=== PATIENT | male | born 1980 | race Caucasian/White ===

== ENCOUNTER 2023-06-28 08:46 | Emergency (ER) | payer OTHER, SELFPAY ==
[2023-06-28 09:01] VITALS: BP 143/94
[2023-06-28] MEDS: NSS 1000 IV (11:49)
[2023-06-28 11:54] LABS: % Basophils 0.8 % (0-2); % Eosinophils 3.4 % (0-6); % Immature Granulocytes 0.5 % (0-0.5); % Lymphocytes 27.9 % (20.5-51.1); % Neutrophils 60.4 % (42.2-75.2); Absolute Basophils 0.1 10^3/uL (0-0.2); Absolute Eosinophils 0.3 10^3/uL (0-0.7); Absolute Lymphocytes 2.1 10^3/uL (1.2-3.4); Absolute Monocytes 0.5 10^3/uL (0.1-0.6); Absolute Neutrophils 4.6 10^3/uL (1.4-6.5); Hematocrit 41.3 % (39.0-52.0); Hemoglobin 14.8 g/dL (13.0-18.0); Mean Corp Hgb Conc. 35.8 g/dL (33.0-37.0); Mean Corpuscular Hgb 29.2 pg (27.0-31.0); Mean Corpuscular Volume 81.5 fL (80.0-94.0); Mean Platelet Volume 10.4 fL (7.4-10.4); Nucleated Red Blood Cells % 0 % (-); Platelet Count 288 10^3/uL (130-400); Red Blood Cell Count 5.07 10^6/uL (4.70-6.10); Red Cell Dist. Width 12.5 % (11.5-14.5); White Blood Cell Count 7.6 10^3/uL (4.8-10.8)
--- NOTE | 2023-06-28 11:58 | ED.GENMED ---
History of Present Illness
General
Chief Complaint: Heart Rate Problem
Source: patient
Exam Limitations: none
Time Seen by Provider: 06/28/23 10:37
Nursing documentation reviewed up to this point in time: agreed with
Travel History
Have you had any contact with someone who has COVID-19?: No
Do you have any symptoms of coronavirus? Fever > 100 degrees, chills, cough, shortness of breath, sore throat, loss of taste or smell, muscle aches, or headache?: No
History of Present Illness
History of Present Illness:
Patient with history of 'rapid heart rate' for long period of time, and has been evaluated by beauty advisor, including wearing Holter monitor, presents to ED secondary to worsening recurrent palpitations over the past 2 days, especially this morning,
when symptoms lasted over 1 hour, associated with mild lightheadedness. Denies nausea or vomiting. Denies headache. Denies blurred vision. Denies chest pain. Denies loss of consciousness. Of note, patient admits to having had increased amount
of alcohol consumption yesterday during an outing. Patient has not had anything to eat or drink after waking up this morning. In addition, when he was wearing Holter monitor in the past, unfortunately, patient did not experience any palpitations
during that time. There is however, family history of early heart disease, with his father having had a heart attack when he was 33 years old. Denies smoking. Denies recent travel. Denies leg pain or swelling. Denies recent travel or surgery.
Denies recent change in medications or diet. Denies recent illness.
Past History
Past History
ED Past Medical History: HTN and Hypercholesterolemia
Review of Systems
Review of Systems
Allergies reviewed?: Yes
All Other Systems: ROS reviewed and negative except as documented in HPI and ROS
Constitutional: Reports no symptoms
EENT: Reports no symptoms
Respiratory: Reports no symptoms
Cardiac: Reports chest pain
ABD/GI: Reports no symptoms
: Reports no symptoms
Musculoskeletal: Reports no symptoms
Skin: Reports no symptoms
Neurological: Reports dizzy
Phy Exam
Physical Exam
Physical Exam:
Physical Exam
General: no apparent distress, not acutely ill. afebrile
Head: nc/at
Neck: supple. no meningeal signs.
Heart: s1/s2 regular rate and rhythm, no murmur. equal radial pulses.
Lungs: no acute respiratory distress. clear bilaterally
Abdomen: normal bowel sounds. not tender.
Neuro: alert and oriented. no focal neurological deficits
Skin: no rash
Psychiatric: well kept. interactive and cooperative
Extremities: no edema. no calf tenderness.
Course
Orders/Labs/Results
Orders:
Orders
06/28/23 09:00
Electrocardiogram (*1) Urgent
Reason for Study: Tachycardia
EKG- Treatment ONCE
06/28/23 11:19
Orthostatic VS- Treatment ONCE
06/28/23 11:20
0.9% Sodium Chloride 1000 ml [Nss] 1,000 ml IV BOLUS
06/28/23 11:38
Complete Blood Count/With Diff Urgent
Comprehensive Metabolic Panel Urgent
Magnesium Urgent
TSH Urgent
Troponin I Urgent
Abnormal Lab Results
06/28/23
11:38
Glucose 105 H mg/dl
(70-99)
06/28/23 11:38
06/28/23 11:38
Vital Signs
Initial and Last Documented VS:
Initial Vital Signs
Temp Pulse Resp BP Pulse Ox
98.6 F 90 16 143/94 95
06/28/23 09:01 06/28/23 09:01 06/28/23 09:01 06/28/23 09:01 06/28/23 09:01
Last Documented Vital Signs
Temp Pulse Resp BP Pulse Ox
98.6 F 90 16 143/94 95
06/28/23 09:01 06/28/23 09:01 06/28/23 09:01 06/28/23 09:01 06/28/23 09:01
MDM/Problems Addressed
MDM/Problems Addressed:
Patient without any further episodes of palpitations during observation ED, along with stable vital signs. Patient's presenting symptoms likely SVT versus PVC versus PACs versus a flutter/A-fib. Patient will be discharged home in stable condition,
with recommendation to continue hydration along with close follow-up with his PMD/cardiology for reevaluation, including potential Holter monitoring.
*EKG
Interpreted by ED Provider?: Yes
EKG Intrepretation Date: 06/28/23
Interpretation: normal
Heart Rate: 84
Rate: normal
Rhythm: sinus
[place]: normal axis
Interval: normal interval
*Critical Care Note
Total Time (30-74mins, 75-104mins- exclusive of procedures): Not Applicable
ED Attending Note
-
Portions of this chart may have been created with voice recognition software.� Occasional wrong word or��sound alike� substitutions may have occurred due to the inherent limitations of voice recognition software.
Discharge Plan
Departure
Patient Disposition: Home (Routine Discharge)
Date of Disposition: 06/28/23
Time of Disposition: 12:45
Patient with high blood pressure during this ER visit?: Yes
Condition: Good
Covid-19: Not Applicable
Discharge Problem:
Heart palpitations
Instructions: Palpitations (DC)
Prescriptions:
No Action
doxycycline hyclate 100 MG tablet
100 mg PO BID Qty: 20 0RF
Referrals:
Donell Morton DO [Family Provider] -
Activity Restrictions/Additional Instructions:
As discussed, please follow-up with your primary care physician and/or beauty advisor for further evaluation and treatment
Interventions
Interventions:
*Risk Screen - Suicide Last Done: 06/28/23 11:09
*General Assessment Last Done: 06/28/23 11:09
*Neglect/Abuse Screening Last Done: 06/28/23 11:09
ED- Fall Risk Assessment Last Done: 06/28/23 11:09
*ED COVID-19 Vaccine History Last Done: 06/28/23 09:01
*Nursing Disposition Last Done: 06/28/23 12:48
ED- Cardiac Assessment Last Done: 06/28/23 11:09
ED- Pulmonary Assessment Last Done: 06/28/23 11:09
Discharge Date and Time
Discharge Date/Time: 06/28/23 13:19
[2023-06-28 12:07] LABS: ALT (SGPT) 38 U/L (0-50); AST (SGOT) 36 U/L (17-59); Albumin 4.3 g/dl (3.5-5.0); Alkaline Phosphatase 52 U/L (38-126); Blood Urea Nitrogen 20 mg/dl (9-20); Calcium 9.9 mg/dl (8.4-10.2); Carbon Dioxide 27 mmol/L (22-30); Chloride 102 mmol/L (98-107); Glucose 105 mg/dl (70-99); Magnesium 2.1 mg/dl (1.6-2.3); Potassium 4.7 mmol/L (3.5-5.1); Sodium 138 mmol/L (135-145); Total Bilirubin 0.7 mg/dl (0.2-1.3); Total Protein 7.1 g/dl (6.3-8.2); eGFR > 60.00
[2023-06-28 12:16] LABS: Troponin I < 0.012 ng/ml
[2023-06-28 12:37] LABS: TSH 1.36 uIU/ml (0.47-4.68)
[2023-06-28 12:46] VITALS: BP 118/78; BP 119/68; BP 129/72; PULSE 59; PULSE 62; PULSE 63
== END 2023-06-28 13:19 | disposition home or self-care (01) ==
LOC: EMR 08:46
PROVIDERS: EMERGENCY PHYSICIAN Emergency Medicine; FAMILY PHYSICIAN Family Medicine
DX: R00.2 Palpitations (principal); I10 Essential (primary) hypertension; Z82.49 Family history of ischemic heart disease and other diseases of the circulatory system
CPT/HCPCS: 99284; 96360; 80053; 83735; 84443; 84484; 85025; 93005

== ENCOUNTER 2024-11-02 13:54 | Inpatient (IN) | payer OTHER, SELFPAY ==
[2024-11-02 10:40] VITALS: BP 138/90
--- NOTE | 2024-11-02 11:00 | ED.GENMED ---
History of Present Illness
General
Chief Complaint: Abdominal Pain
Source: patient
Time Seen by Provider: 11/02/24 10:46
History of Present Illness
History of Present Illness:
44-year-old male presents to the emergency room complaining of upper abdominal pain. Patient states the pain began at around 5 AM. It woke him from sleep. Pain is located in the epigastric area and radiates to the back. He has nausea but has not
vomited. Nothing seems to make the pain better or worse. He did not take any medication to help with the pain. Patient has had similar episodes of pain which were short-lived and not as severe. His doctor thought perhaps he was having episodes
of pancreatitis but his labs were unremarkable. Patient denies any previous abdominal surgery. He endorses alcohol use but on a once a week basis. He did drink more than he typically does this weekend while at a constitution party. Patient denies any fever,
chills, diarrhea. Patient also endorses a history of hypertriglyceridemia.
Past History
Past History
ED Past Medical History: HTN and Hypercholesterolemia
Phy Exam
Physical Exam
Physical Exam:
General: Awake, Alert, Oriented X3. Appears mildly uncomfortable
Vitals: unremarkable
Head: Atraumatic
Eyes: Pupils equal, EOMI
Throat: Airway intact, no exudates
Neck: Trachea midline
Lungs: Clear and equal b/l
Heart: Regular rate, no murmurs
Abd: Soft, tender to palpation in the epigastrium,, No pulsatile mass
Neuro: Nonfocal
Skin: Warm, dry, no rash
Extremities: pulses equal b/l, no edema
Course
Orders/Labs/Results
Orders:
Orders
11/02/24 Breakfast
NPO
Allow oral meds: Yes
Allow clear liquids: No
11/02/24 10:58
0.9% Sodium Chloride 1000 ml [Nss] 1,000 ml IV BOLUS
Ketorolac [Toradol] 15 mg IV NOW STA
Ondansetron Injectable [Zofran] 4 mg IV NOW STA
11/02/24 10:59
US Abdomen Complete/Upper Urgent
Comment:
Reason For Exam: epigastric pain
11/02/24 11:02
Complete Blood Count/With Diff Urgent
Comprehensive Metabolic Panel Urgent
Lipase Urgent
Triglycerides Urgent
Comment: ADD ON
11/02/24 12:24
CT Abd/pelvis W Iv Cont Urgent
Comment:
Reason For Exam: abdominal pain, elevated lipase
11/02/24 13:15
Urinalysis Reflex To Culture Urgent
Date Specimen was Collected: 11/02/24
Time Specimen was Collected: 12:04
11/02/24 13:22
Admit/Transfer Patient As Directed
Co-Sign Provider:
Level of Care: Inpatient admission
Assign to:: Medical/Surgical
Physician / Group: tash
Diagnosis: acute pancreatitis
Reason for Hospitalization: acute pancreatitis
Expected length of stay greater than two midnights?: Yes
ELOS- Estimated Length of Stay in days: 3
I certify the patient meets the requirements for IP care: Yes
PRN Pain Medication Management As Directed
May give lesser potent ordered pain med per pt: Yes
preference::
Protocol:: Medication orders for pain may be administered in a
manner that supports deferring to patient preference
when the pt is:
- Requesting an ordered lesser potent pain medication.
Least to most potent pain medications are defined
as: acetaminophen < NSAID < tramadol < opioids
(morphine, oxycodone, hydromorphone).
- Requesting a lesser dose of the same medication IF
ORDERED.
- Requesting a less intrusive route of administration
if both routes are prescribed by the provider (PO <
IV).
11/02/24 13:23
Code Status As Directed
Resuscitation Status: Full Code
11/02/24 13:45
HYDROmorphone [Dilaudid] 1 mg IV Q4HPRN PRN
11/02/24 14:17
0.9% Sodium Chloride 1000 ml [Nss] 1,000 ml IV 250 mls/hr
11/02/24 14:17
Activity As Directed
Activity Level: As Tolerated
Vital Signs As Directed
Frequency: Per unit guidelines
DX Deep Vein Thrombosis Video Routine
11/02/24 15:00
0.9% Sodium Chloride 250 ml [Nss] 250 ml IV 5/D
11/02/24 15:05
Pantoprazole [Protonix] 40 mg PO DAILYPRN PRN
11/02/24 18:00
Enoxaparin Sodium [Lovenox] 40 mg SC QPM
11/02/24 22:00
Fenofibrate 145 [Tricor] 145 mg PO HS
Losartan [Cozaar] 50 mg PO HS
Rosuvastatin Calcium [Crestor] 40 mg PO HS
11/03/24 06:49
Lipase IN AM
11/04/24 06:00
Lipase IN AM
11/05/24 06:00
Lipase IN AM
11/06/24 06:00
Lipase IN AM
Abnormal Lab Results
11/02/24
11:02
MPV 10.6 H fL
(7.4-10.4)
Absolute Neuts (auto) 7.1 H 10^3/uL
(1.4-6.5)
Neutrophils % 76.2 H %
(42.2-75.2)
Lymphocytes % 16.7 L %
(20.5-51.1)
Calcium 10.4 H mg/dl
(8.4-10.2)
Triglycerides 195 H mg/dl
(10-149)
Lipase 1688 H* U/L
(23-300)
11/02/24 11:02
11/02/24 11:02
Vital Signs
Initial and Last Documented VS:
Initial Vital Signs
Temp Pulse Resp BP Pulse Ox
98.3 F 79 18 138/90 97
11/02/24 10:40 11/02/24 10:40 11/02/24 10:40 11/02/24 10:40 11/02/24 10:40
Last Documented Vital Signs
Temp Pulse Resp BP Pulse Ox
98 F 64 16 128/81 97
11/03/24 15:08 11/03/24 15:08 11/03/24 15:08 11/03/24 15:08 11/03/24 15:08
MDM/Problems Addressed
Differential Diagnosis Includes:
Pancreatitis, choledocholithiasis, cholecystitis, diverticulitis
MDM/Problems Addressed:
Patient's presentation seems most consistent with pancreatitis. Lipase is elevated. CT shows mild peripancreatic inflammatory changes.
*Radiology
Radiology exam reviewed: radiology read reviewed
*Pulse Oximetry
Patient hypoxic: no
Comment: 97
*EKG
Interpreted by ED Provider?: Yes
Heart Rate: 62
Rate: normal
Rhythm: sinus
[place]: normal axis
Interval: normal interval
QRS Pattern: normal QRS
Ischemia: no ischemia
*Customer Service Administrator Interpretation
Rate: normal
Interpretation: normal
Heart Rate: 62
Rhythm: sinus
*Critical Care Note
Total Time (30-74mins, 75-104mins- exclusive of procedures): Not Applicable
ED Attending Note
-
Portions of this chart may have been created with voice recognition software.� Occasional wrong word or��sound alike� substitutions may have occurred due to the inherent limitations of voice recognition software.
Discharge Plan
Departure
Patient Disposition: Admit
Date of Disposition: 11/02/24
Time of Disposition: 12:27
Admit to: Med/Surg
Presentation/result/management discussed w/ accepting MD/DO: Hospitalist
Patient with high blood pressure during this ER visit?: No
Condition: Good
Discharge Problem:
Abdominal pain, Acute pancreatitis
Interventions
Interventions:
*Risk Screen - Suicide Last Done: 11/02/24 10:40
*General Assessment Last Done: 11/02/24 10:40
*Neglect/Abuse Screening Last Done: 11/02/24 10:40
*ED- Fall Risk Assessment Last Done: 11/02/24 11:15
*ED COVID-19 Vaccine History Last Done: 11/02/24 11:15
*Nursing Disposition Last Done: 11/02/24 14:05
YN-Lwtgiz-Tpubfwmxyw Assessment Last Done: 11/02/24 11:06
Discharge Date and Time
Discharge Date/Time: 11/02/24 14:17
[2024-11-02] MEDS: TORADOL 15 MG IV (11:07)
[2024-11-02] MEDS: ZOFRAN 4 MG IV ×2 (11:07→20:58)
[2024-11-02] MEDS: NSS 1000 IV ×4 (11:07→23:36)
[2024-11-02 11:12] VITALS: BP 133/84
[2024-11-02 11:14] VITALS: BMI 32.0
[2024-11-02 11:15] LABS: % Basophils 0.3 % (0-2); % Eosinophils 1.6 % (0-6); % Immature Granulocytes 0.4 % (0-0.5); % Lymphocytes 16.7 % (20.5-51.1); % Monocytes 4.8 % (1.7-9.3); % Neutrophils 76.2 % (42.2-75.2); Absolute Eosinophils 0.2 10^3/uL (0-0.7); Absolute Lymphocytes 1.6 10^3/uL (1.2-3.4); Absolute Monocytes 0.5 10^3/uL (0.1-0.6); Absolute Neutrophils 7.1 10^3/uL (1.4-6.5); Hematocrit 45.1 % (39.0-52.0); Hemoglobin 15.3 g/dL (13.0-18.0); Mean Corp Hgb Conc. 33.9 g/dL (33.0-37.0); Mean Corpuscular Hgb 27.9 pg (27.0-31.0); Mean Corpuscular Volume 82.1 fL (80.0-94.0); Mean Platelet Volume 10.6 fL (7.4-10.4); Nucleated Red Blood Cells % 0 % (-); Platelet Count 283 10^3/uL (130-400); Red Blood Cell Count 5.49 10^6/uL (4.70-6.10); Red Cell Dist. Width 12.4 % (11.5-14.5); White Blood Cell Count 9.3 10^3/uL (4.8-10.8)
[2024-11-02 11:45] LABS: ALT (SGPT) 36 U/L (0-50); AST (SGOT) 32 U/L (17-59); Albumin 4.9 g/dl (3.5-5.0); Alkaline Phosphatase 45 U/L (38-126); Blood Urea Nitrogen 18 mg/dl (9-20); Calcium 10.4 mg/dl (8.4-10.2); Carbon Dioxide 28 mmol/L (22-30); Chloride 107 mmol/L (98-107); Glucose 97 mg/dl (70-99); Lipase 1688 U/L (23-300); Potassium 4.6 mmol/L (3.5-5.1); Sodium 142 mmol/L (135-145); Total Bilirubin 0.8 mg/dl (0.2-1.3); eGFR > 60.00
[2024-11-02 12:27] VITALS: BP 125/85
[2024-11-02 12:38] LABS: Estimated Creatinine Clearance 95 ml/min
[2024-11-02 13:00] VITALS: BP 118/75
--- NOTE | 2024-11-02 13:09 | HPS.HSE ---
Family Physician
-
Family Physician: RAMIN NGO MD
Chief Complaint
-
Epigastric pain
History of Present Illness
44-year-old male with past medical history for hypertension, hypertriglyceridemia presented to us with upper abdominal pain. Patient states the pain began at around 5 AM. It woke him from sleep. Pain is located in the epigastric area and
radiates to the right sided back. Patient stated very little nausea but no vomiting, diarrhea. Patient denied any fever, chills, headache, dizziness or syncope. Patient denied chest pain or short of breath. Denied dysuria hematuria. Patient is
a occasional alcoholic drinker, but never drinks during weekdays. He had a heavy drink last Friday due to green party.
Patient was noted to have elevated lipase. Abdominal ultrasound with no acute findings. CT abdomen in ER. Patient received a dose of Toradol and Zofran in ER. Patient received normal saline x 1 bag in the ER
Medical History
Past Medical History
Past Medical History: Reports Other
Additional Past Medical History:
Hypertriglyceridemia, hypertension, GERD
Past Surgical History: Reports None
Additional Past Surgical History:
Mohs surgery in the head
Social History
Tobacco: Non-smoker
Alcohol: Occasional
Drug: None
Personal:
Living: With Family
Family History
Family History: Not pertinent
Allergies / Home Medications
Allergies reflects when Allergies were last updated in [facility].
Home Medications with original date entered in [facility]
Allergy/Medication List:
Allergies
Allergy/AdvReac Type Severity Reaction Status Date / Time
seasonal Allergy Unknown Uncoded 11/02/24 10:40
Home Medications
fenofibrate nanocrystallized 145 mg tablet 145 mg PO HS 11/02/24
ibuprofen 200 mg capsule (Advil Liqui-Gel) 400 mg PO DAILYPRN PRN mild pain 11/02/24
losartan 50 mg tablet 50 mg PO HS 11/02/24
omeprazole 20 mg tablet,delayed release 40 mg PO DAILY PRN GERD 11/02/24
rosuvastatin 40 mg tablet 40 mg PO HS 11/02/24
Review of Systems
-
Constitutional: Reports No Symptoms
EENT: Reports No Symptoms
Respiratory: Reports No Symptoms
Cardiac: Reports No Symptoms
Abdomen/GI: Reports Abdominal Pain and Nausea
: Reports No Symptoms
Musculoskeletal: Reports No Symptoms
Skin: Reports No Symptoms
Neurological: Reports No Symptoms
Endocrine: Reports No Symptoms
Hematologic/Lymphatic: Reports No Symptoms
Psych: Reports No Symptoms
Physical Exam
Vital Signs
Vital Signs
Temp Pulse Resp BP Pulse Ox
98.3 F 66 18 125/85 96
11/02/24 10:40 11/02/24 12:30 11/02/24 12:30 11/02/24 12:27 11/02/24 12:30
Physical Exam
General: Well Developed, Well Nourished and No Apparent Distress
HEENT: NormoCephalic, Moist mucous membranes and Atraumatic
Respiratory: Clear
Cardiac: S1/S2 and Regular Rhythm; No Murmur or Rub
GI: Soft, Non Tender, Non Distended and Normal Bowel Sounds; No Organomegaly
Rectal: Deferred by Provider
Musculoskeletal: No Clubbing, No Cyanosis and No Edema
Skin: No Rash
Neuro: AO x 3 and Nonfocal/grossly intact
Psych: Calm
Laboratory Results
-
11/02/24 11:02
11/02/24 11:02
Laboratory Results
Total Bilirubin 0.8 mg/dl (0.2-1.3) 11/02/24 11:02
AST 32 U/L (17-59) 11/02/24 11:02
ALT 36 U/L (0-50) 11/02/24 11:02
Alkaline Phosphatase 45 U/L (38-126) 11/02/24 11:02
Lipase 1688 U/L (23-300) H* 11/02/24 11:02
Data Reviewed
-
Diagnostic Radiology: Report Reviewed by me
Lab Data: Labs Reviewed by me
Impression/Plan
-
# Acute pancreatitis
- Lipase 1688
- Ultrasound of abdomen with impression of Borderline hepatomegaly with diffuse fatty liver.No findings to confirm cholelithiasis, gallbladder wall thickening or biliary tract dilatation. Negative sonographic Daniels's sign.
- CT of abdomen pelvis pain pending
- Will keep patient n.p.o.
-hydrate with fluids
- Dilaudid as needed for pain
# Hyperlipidemia/hypertriglyceridemia
- Fenofibrate, rosuvastatin continued
# Essential hypertension
- Losartan continue with hold parameters
# DVT prophylaxis
-Lovenox subcu
# CODE STATUS
- Full code
[2024-11-02 13:38] LABS: Urine Albumin Negative (Neg - Trace); Urine Bilirubin Negative (Negative); Urine Character Clear (Clear); Urine Color Yellow; Urine Glucose Negative (Negative); Urine Ketone Negative (Negative); Urine Leukocyte Negative (Negative); Urine Nitrite Negative (Negative); Urine Occult Blood Negative (Negative); Urine Urobilinogen Negative (Neg - 1+)
[2024-11-02] MEDS: DILAUDID 1 MG IV ×2 (13:54→17:54)
--- NOTE | 2024-11-02 14:17 | W.PN.UPDATE ---
Update Note
Progress Note Update
44-year-old male past medical history of possible pancreatitis in the past, hypertension, hypertriglyceridemia presenting with epigastric abdominal pain since this morning with nausea without fever.
Drank alcohol excessively last Friday.
Labs showed lipase of 1700.
CT abdomen pelvis pending.
Patient with acute pancreatitis likely secondary to alcohol although with history of hypertriglyceridemia. �N.p.o., IV fluids, check triglyceride level.
[2024-11-02 14:35] VITALS: BP 127/75; BMI 31.7
[2024-11-02 14:58] LABS: Triglycerides 195 mg/dl (10-149)
[2024-11-02] MEDS: LOVENOX 40 MG SC (17:55)
--- NOTE | 2024-11-02 18:31 | PTCARENOTE ---
Patient arrived to unit from ED and ambulated to bed from stretcher. Oriented to room. Call ngo within reach.
[2024-11-02] MEDS: COZAAR 50 MG PO (20:41)
[2024-11-02] MEDS: CRESTOR 40 MG PO (20:41)
[2024-11-02] MEDS: TRICOR 145 MG PO (20:41)
[2024-11-02 23:15] VITALS: BP 114/66
[2024-11-03] MEDS: NSS 1000 IV ×2 (03:40→08:01)
[2024-11-03] MEDS: ROXICODONE 5 MG PO (04:44)
--- NOTE | 2024-11-03 05:01 | DOWNTIME ---
Addendum entered by Lili Mcfarlane RN 11/03/24 14:21:
Correction: Downtime was 11/03/2024 from 0100 to 11/03/2024 at 0415
Original Note:
There was a [employer] Downtime on 11/02/2024 from 0100 to 11/03/2024 at 0415. Downtime documentation of patient's care, including medication administrations, has been reconciled in the electronic record per guidelines. Refer to the
patient's paper chart under the miscellaneous tab to see printed paper medication records and downtime forms.
[2024-11-03 07:34] VITALS: BP 127/76
[2024-11-03 07:51] LABS: HDL Cholesterol 31 mg/dl; LDL Cholesterol, Calculated 19 mg/dl; Lipase 679 U/L (23-300); Total Cholesterol 93 mg/dl (50-199); Triglyceride 215 mg/dl (10-149); Very Low Density Lipoprotein 43 mg/dl (0-30)
[2024-11-03] MEDS: LR 1000 IV ×3 (12:06→19:57)
--- NOTE | 2024-11-03 14:17 | W.PN.HOSP.TC ---
Today's Communication/Plan
-
Assessment / Plan
Assessment / Plan
NAD
Scleral Anicteric
MMM
No JVD
CTABL
RRR, S1/S2
Soft, NT, ND, BS+
Warm, Dry
AAOx3
Calm
Acute pancreatitis likely secondary to alcohol use
IV fluids
IV analgesic
Antiemetics
As abdominal pain improving, would like to trial diet therefore start clear liquid diet advance as tolerated to low residual
Sigmoid diverticulosis without diverticulitis
This noted on CT
Outpatient GI follow-up
Umbilical hernia with small amount of fat
However on exam unable to palpate for hernia
Hepatomegaly with mild fatty liver.
- Consistent with known history of hyperlipidemia/hypertriglyceridemia
Continue Crestor fenofibrate
Hypertension
Continue antihypertensive
GERD
Continue PPI
Anticipated Discharge: 24 - 48 hours
Subjective/Interval History
-
Date of Service: November 03, 2024
Seen and examined. No new complaints. No acute overnight events.
Abdominal pain
No further nausea
Objective Data
-
Vital Signs:
Vital Signs
Temp Pulse Resp BP Pulse Ox
98.3 F 59 16 127/76 96
11/03/24 07:34 11/03/24 07:34 11/03/24 07:34 11/03/24 07:34 11/03/24 07:34
[2024-11-03 15:08] VITALS: BP 128/81
--- NOTE | 2024-11-03 15:42 | CM ---
Met with patient to obtain information for assessment. Patient's was at bedside. Patient stated that he lives with his in a two story home with two steps to enter. He described himself as independent with his ADLs, personal care, dressing
and bathing. 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 He drives and can get to work and do all of his shopping as well as run errands. He has two young children for whom he cares. He has no DME. He has never been to a SNF. He has not had
VN services.
Patient has a prescription plan and uses, [facility] in [place] for all of his medications.
Patient's PCP is, Kamilla Cotton.
Plan: Case management will continue to follow and assist with discharge planning. Home when medically cleared.
[2024-11-03] MEDS: TYLENOL 650 MG PO (16:07)
[2024-11-03] MEDS: LOVENOX 40 MG SC (17:29)
[2024-11-03] MEDS: COZAAR 50 MG PO (19:54)
[2024-11-03] MEDS: CRESTOR 40 MG PO (19:54)
[2024-11-03] MEDS: TRICOR 145 MG PO (19:54)
[2024-11-03 23:37] VITALS: BP 134/83
[2024-11-04] MEDS: LR 1000 IV ×2 (00:01→07:33)
[2024-11-04] MEDS: TYLENOL 650 MG PO ×2 (00:05→10:53)
[2024-11-04 07:25] VITALS: BP 142/92
[2024-11-04 08:48] LABS: Lipase 209 U/L (23-300)
--- NOTE | 2024-11-04 10:43 | W.DCSUMMARY ---
Discharge Summary
Discharge Data
Date of Admission: 11/02/24
Date of Discharge: 11/04/24
-
Pending Results: No
Hospital Course
44-year-old male with past medical history for hypertension, hypertriglyceridemia
Presented with acute pancreatitis with a lipase of 1600. suspecte secondary to alcohol use. TG level <250. Started on IVF with LR and analgesics. Able to tolerate diet that was advanced to a low residue. Avoid alcohol use. -
-Will need outpatient GI follow up along with PCP follow up
Abdominal CT
IMPRESSION:
Stranding about the head of pancreas and proximal duodenum most likely representing acute pancreatitis. No findings to suggest well-formed accompanying abnormal focal peripancreatic fluid collection, confirmed cholelithiasis or biliary tract
dilatation.
Mild hepatomegaly with diffuse fatty liver.
Likely tiny fat only containing umbilical hernia.
Avdominal ultrasound
IMPRESSION: Borderline hepatomegaly with diffuse fatty liver.
Was seen and examined on day of discharge. Sitting in bedside chair without any complaints at this time. A simple diet.
NAD
Scleral Anicteric
MMM
No JVD
CTABL
RRR, S1/S2
Soft, NT, ND, BS+
Warm, Dry
AAOx3
Calm
More than 30 minutes spent in discharge including
Final examination of the patient
Summarizing hospital stay
Instructions for continuing care to all relevant caregivers
Preparation of discharge records, prescriptions, and referral forms
Total time spent (in minutes): 33min
Discharge Plan
-
Patient Disposition: Home (Routine Discharge)
Discharge Diagnosis/Procedures: Acute pancreatitis
Condition: Good
Diet: As tolerated, Low Fat, Low Cholesterol and No added salt
Activity: As tolerated
Activity Restrictions/Additional Instructions:
Presented with acute pancreatitis with a lipase of 1600. suspecte secondary to alcohol use. TG level <250. Started on IVF with LR and analgesics. Able to tolerate diet that was advanced to a low residue. Avoid alcohol use. -
-Will need outpatient GI follow up along with PCP follow up
Abdominal CT
IMPRESSION:
Stranding about the head of pancreas and proximal duodenum most likely representing acute pancreatitis. No findings to suggest well-formed accompanying abnormal focal peripancreatic fluid collection, confirmed cholelithiasis or biliary tract
dilatation.
Mild hepatomegaly with diffuse fatty liver.
Likely tiny fat only containing umbilical hernia.
Avdominal ultrasound
IMPRESSION: Borderline hepatomegaly with diffuse fatty liver.
Referrals:
Ada Martinez MD [Active, Gastroenterology] - in two weeks
RAMIN NGO MD [Family Provider, Internal Medicine]
Prescriptions:
Continued
losartan 50 mg Tablet
50 mg PO HS
ibuprofen [Advil Liqui-Gel] 200 mg Capsule
400 mg PO DAILYPRN PRN (Reason: mild pain)
rosuvastatin 40 mg Tablet
40 mg PO HS
fenofibrate nanocrystallized 145 mg Tablet
145 mg PO HS
omeprazole 20 mg Tablet,Delayed Release (Dr/Ec)
40 mg PO DAILY PRN (Reason: GERD)
Discharge Orders:
Discharge Patient (As Directed); Ordered 11/04/24
Ordered By: Ubaldo Hills
Discharge Date and Time
Discharge Date/Time: 11/04/24 12:41
Print Language: GAMBIAN
== END 2024-11-04 12:41 | disposition home or self-care (01) | DRG 440 ==
LOC: 4 EAST ACU 13:54
PROVIDERS: Registered Nurse; ADMITTING PHYSICIAN Hospitalist; ATTENDING PHYSICIAN Hospitalist; EMERGENCY PHYSICIAN Emergency Medicine; FAMILY PHYSICIAN General Practice
DX: K85.20 Alcohol induced acute pancreatitis without necrosis or infection (principal); R16.0 Hepatomegaly, not elsewhere classified; E78.00 Pure hypercholesterolemia, unspecified; E78.1 Pure hyperglyceridemia; K21.9 Gastro-esophageal reflux disease without esophagitis; I10 Essential (primary) hypertension; K76.0 Fatty (change of) liver, not elsewhere classified
CPT/HCPCS: 74177; 76700; 80053; 80061; 81003; 83690; 84478; 85025; 93005; 96374; 96375; 99285; Q9967

== ENCOUNTER → 2025-04-07 09:38 | Outpatient (REF) | payer OTHER, SELFPAY | LOC: MRI 3T 09:38 | PROVIDERS: ATTENDING PHYSICIAN Specialist; FAMILY PHYSICIAN General Practice | DX: K85.20 Alcohol induced acute pancreatitis without necrosis or infection (principal) | CPT/HCPCS: 74183; A9575 ==